=== PATIENT | male | born 1990 | race Caucasian/White ===

== ENCOUNTER 2020-02-06 12:51 | Emergency (ER) | payer OTHER ==
--- NOTE | 2020-02-06 13:51 | EDM.PDOC ---
ED HPI GENERAL MEDICAL PROBLEM - General Chief Complaint: Respiratory Problem Stated Complaint: CHEST PAIN,SOB,DIZZY Time Seen by Provider: 02/06/20 13:17 Source of Information: Reports: Patient History Limitations: Reports: No Limitations - History of Present Illness INITIAL COMMENTS - FREE TEXT/NARRATIVE: Patient is a 29-year-old male presenting to the emergency department with complaints of shortness of breath and chest pain with exertion, occasional numbness and tingling to his extremities well walking, lightheadedness upon standing, occasional cough, chills, and diarrhea. Patient states symptoms have been occurring for approximately 1 week. 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 He has had no known sick contacts. Patient is an everyday drinker. States he drinks a 6 to 12 pack each evening. Last drink was around 8 PM last evening. He denies any dark or bloody stools. He has had no vomiting, abdominal pain, or fever. He denies any chronic medical needed conditions and does not have a primary care provider. Chest Pain Score (Numeric/FACES): 4 - Related Data Allergies Allergy/AdvReac Type Severity Reaction Status Date / Time No Known Allergies Allergy Verified 02/06/20 13:02 Home Meds: Home Meds . [No Known Home Meds] 02/06/20 [History] Past Medical History - Past Health History Medical/Surgical History: Denies Medical/Surgical History Social & Family History - Tobacco Use Smoking Status *Q: Current Every Day Smoker Years of Tobacco use: 14 Packs/Tins Daily: 1 - Alcohol Use Date of Last Drink: 02/05/20 Time of Last Drink: 20:00 - Recreational Drug Use Recreational Drug Use: Yes Drug Use in Last 12 Months: Yes Recreational Drug Type: Reports: Marijuana/Hashish Recreational Drug Use Frequency: Socially ED ROS GENERAL - Review of Systems Review Of Systems: See Below Constitutional: Reports: Chills, Fatigue. Denies: Fever HEENT: Reports: No Symptoms Respiratory: Reports: Shortness of Breath, Cough. Denies: Wheezing Cardiovascular: Reports: Chest Pain (Intermittent, with exertion), Dyspnea on Exertion, Lightheadedness. Denies: Palpitations, Syncope Endocrine: Reports: No Symptoms GI/Abdominal: Reports: Diarrhea. Denies: Abdominal Pain, Nausea, Vomiting : Reports: No Symptoms Musculoskeletal: Reports: No Symptoms Skin: Reports: No Symptoms Neurological: Reports: Paresthesia (Intermittent to extremities with exertion) Psychiatric: Reports: No Symptoms Hematologic/Lymphatic: Reports: No Symptoms Immunologic: Reports: No Symptoms ED EXAM, GENERAL - Physical Exam Exam: See Below Exam Limited By: No Limitations General Appearance: Alert, WD/WN, No Apparent Distress Respiratory/Chest: No Respiratory Distress, Lungs Clear, Normal Breath Sounds, No Accessory Muscle Use, Chest Non-Tender Cardiovascular: Normal Peripheral Pulses, Regular Rate, Rhythm, No Edema, No Gallop, No JVD, No Murmur, No Rub GI/Abdominal: Normal Bowel Sounds, Soft, Non-Tender, No Organomegaly, No Distention, No Abnormal Bruit, No Mass Extremities: Normal Inspection, Normal Range of Motion, Non-Tender, Normal Capillary Refill, No Pedal Edema Neurological: Alert, Oriented, CN II-XII Intact, Normal Cognition, Normal Gait, Normal Reflexes, No Motor/Sensory Deficits Psychiatric: Normal Affect, Normal Mood Skin Exam: Warm, Dry, Intact, Normal Color, No Rash EKG INTERPRETATION EKG Date: 02/06/20 Time: 13:27 Rhythm: NSR Rate (Beats/Min): 96 [place]: Normal P-Wave: Present QRS: Normal ST-T: Normal QT: Normal Comparison: NA - No Prior EKG Course - Vital Signs Last Recorded V/S: Last Vital Signs Temp 97.2 F 02/06/20 19:23 Pulse 97 02/06/20 19:23 Resp 16 02/06/20 19:23 BP 125/73 02/06/20 19:23 Pulse Ox 100 02/06/20 13:00 Orthostatic Blood Pressure [ 119/28 Standing] Orthostatic Blood Pressure [ 129/70 Sitting] Orthostatic Blood Pressure [ 132/77 Supine] - Orders/Labs/Meds Labs: Laboratory Tests 02/06/20 02/06/20 02/06/20 Range/Units 13:26 13:26 13:26 WBC 6.87 (4.23-9.07) K/mm3 RBC 2.22 L (4.63-6.08) M/mm3 Hgb 4.5 L* (13.7-17.5) gm/dl Hct 16.4 L (40.1-51.0) % MCV 73.9 L (79.0-92.2) fl MCH 20.3 L (25.7-32.2) pg MCHC 27.4 L (32.2-35.5) g/dl RDW Std Deviation 48.8 H (35.1-43.9) fL Plt Count 398 H (163-337) K/mm3 MPV 8.0 L (9.4-12.3) fl Neut % (Auto) 69.6 H (34.0-67.9) % Lymph % (Auto) 14.0 L (21.8-53.1) % [place] % (Auto) 14.8 H (5.3-12.2) % Eos % (Auto) 0.6 L (0.8-7.0) Baso % (Auto) 0.9 (0.1-1.2) % Neut # (Auto) 4.78 (1.78-5.38) K/mm3 Lymph # (Auto) 0.96 L (1.32-3.57) K/mm3 [place] # (Auto) 1.02 H (0.30-0.82) K/mm3 Eos # (Auto) 0.04 (0.04-0.54) K/mm3 Baso # (Auto) 0.06 (0.01-0.08) K/mm3 Manual Slide Review Abnormal smear Percent Retic (0.51-1.81) % D-Dimer, Quantitative 1.07 H (0.19-0.50) mg/L Sodium 133 L (136-145) mEq/L Potassium 4.0 (3.5-5.1) mEq/L Chloride 96 L (98-107) mEq/L Carbon Dioxide 22 (21-32) mEq/L Anion Gap 19.0 H (5-15) BUN 5 L (7-18) mg/dL Creatinine 0.8 (0.7-1.3) mg/dL Est Cr Clr Drug Dosing 139.41 mL/min Estimated GFR (MDRD) > 60 (>60) mL/min BUN/Creatinine Ratio 6.3 L (14-18) Glucose 93 (74-106) mg/dL Calcium 8.2 L (8.5-10.1) mg/dL Magnesium (1.8-2.4) mg/dl Iron (65-175) ug/dL TIBC (100-400) ug/dL % Saturation (20-55) % Transferrin (202-364) mg/dL Ferritin (26-388) ng/ml Total Bilirubin 0.2 (0.2-1.0) mg/dL AST 27 (15-37) U/L ALT 21 (16-63) U/L Alkaline Phosphatase 44 L (46-116) U/L Lactate Dehydrogenase (85-227) U/L Troponin I < 0.017 (0.00-0.056) ng/mL C-Reactive Protein 0.3 (<1.0) mg/dL Total Protein 7.1 (6.4-8.2) g/dl Albumin 3.4 (3.4-5.0) g/dl Globulin 3.7 gm/dL Albumin/Globulin Ratio 0.9 L (1-2) Vitamin B12 (193-986) pg/ml Folate (8.6-58.9) ng/mL Blood Type Gel Antibody Screen Crossmatch 02/06/20 02/06/20 02/06/20 Range/Units 13:26 13:26 13:26 WBC (4.23-9.07) K/mm3 RBC (4.63-6.08) M/mm3 Hgb (13.7-17.5) gm/dl Hct (40.1-51.0) % MCV (79.0-92.2) fl MCH (25.7-32.2) pg MCHC (32.2-35.5) g/dl RDW Std Deviation (35.1-43.9) fL Plt Count (163-337) K/mm3 MPV (9.4-12.3) fl Neut % (Auto) (34.0-67.9) % Lymph % (Auto) (21.8-53.1) % [place] % (Auto) (5.3-12.2) % Eos % (Auto) (0.8-7.0) Baso % (Auto) (0.1-1.2) % Neut # (Auto) (1.78-5.38) K/mm3 Lymph # (Auto) (1.32-3.57) K/mm3 [place] # (Auto) (0.30-0.82) K/mm3 Eos # (Auto) (0.04-0.54) K/mm3 Baso # (Auto) (0.01-0.08) K/mm3 Manual Slide Review Percent Retic (0.51-1.81) % D-Dimer, Quantitative (0.19-0.50) mg/L Sodium (136-145) mEq/L Potassium (3.5-5.1) mEq/L Chloride (98-107) mEq/L Carbon Dioxide (21-32) mEq/L Anion Gap (5-15) BUN (7-18) mg/dL Creatinine (0.7-1.3) mg/dL Est Cr Clr Drug Dosing mL/min Estimated GFR (MDRD) (>60) mL/min BUN/Creatinine Ratio (14-18) Glucose (74-106) mg/dL Calcium (8.5-10.1) mg/dL Magnesium 1.8 (1.8-2.4) mg/dl Iron 5 L (65-175) ug/dL TIBC (100-400) ug/dL % Saturation (20-55) % Transferrin (202-364) mg/dL Ferritin 6 L (26-388) ng/ml Total Bilirubin (0.2-1.0) mg/dL AST (15-37) U/L ALT (16-63) U/L Alkaline Phosphatase (46-116) U/L Lactate Dehydrogenase (85-227) U/L Troponin I (0.00-0.056) ng/mL C-Reactive Protein (<1.0) mg/dL Total Protein (6.4-8.2) g/dl Albumin (3.4-5.0) g/dl Globulin gm/dL Albumin/Globulin Ratio (1-2) Vitamin B12 (193-986) pg/ml Folate (8.6-58.9) ng/mL Blood Type O NEGATIVE Gel Antibody Screen Negative Crossmatch See Detail 02/06/20 02/06/20 02/06/20 Range/Units 13:26 13:26 13:41 WBC (4.23-9.07) K/mm3 RBC (4.63-6.08) M/mm3 Hgb (13.7-17.5) gm/dl Hct (40.1-51.0) % MCV (79.0-92.2) fl MCH (25.7-32.2) pg MCHC (32.2-35.5) g/dl RDW Std Deviation (35.1-43.9) fL Plt Count (163-337) K/mm3 MPV (9.4-12.3) fl Neut % (Auto) (34.0-67.9) % Lymph % (Auto) (21.8-53.1) % [place] % (Auto) (5.3-12.2) % Eos % (Auto) (0.8-7.0) Baso % (Auto) (0.1-1.2) % Neut # (Auto) (1.78-5.38) K/mm3 Lymph # (Auto) (1.32-3.57) K/mm3 [place] # (Auto) (0.30-0.82) K/mm3 Eos # (Auto) (0.04-0.54) K/mm3 Baso # (Auto) (0.01-0.08) K/mm3 Manual Slide Review Percent Retic 3.05 H (0.51-1.81) % D-Dimer, Quantitative (0.19-0.50) mg/L Sodium (136-145) mEq/L Potassium (3.5-5.1) mEq/L Chloride (98-107) mEq/L Carbon Dioxide (21-32) mEq/L Anion Gap (5-15) BUN (7-18) mg/dL Creatinine (0.7-1.3) mg/dL Est Cr Clr Drug Dosing mL/min Estimated GFR (MDRD) (>60) mL/min BUN/Creatinine Ratio (14-18) Glucose (74-106) mg/dL Calcium (8.5-10.1) mg/dL Magnesium (1.8-2.4) mg/dl Iron 7 L (65-175) ug/dL TIBC 451 H (100-400) ug/dL % Saturation 2 L (20-55) % Transferrin 361 (202-364) mg/dL Ferritin (26-388) ng/ml Total Bilirubin (0.2-1.0) mg/dL AST (15-37) U/L ALT (16-63) U/L Alkaline Phosphatase (46-116) U/L Lactate Dehydrogenase 327 H (85-227) U/L Troponin I (0.00-0.056) ng/mL C-Reactive Protein (<1.0) mg/dL Total Protein (6.4-8.2) g/dl Albumin (3.4-5.0) g/dl Globulin gm/dL Albumin/Globulin Ratio (1-2) Vitamin B12 520 (193-986) pg/ml Folate 13.2 (8.6-58.9) ng/mL Blood Type Gel Antibody Screen Crossmatch Meds: Medications Discontinued Medications Generic Name Dose Route Start Last Admin Trade Name Estevan PRN Reason Stop Dose Admin Ferrous Sulfate 324 mg 02/06/20 17:16 Ferrous Sulfate PO 02/06/20 17:17 ONETIME ONE Sodium Chloride 1,000 mls @ 150 mls/hr 02/06/20 14:45 Normal Saline IV ASDIRECTED CHRISTINA Sodium Chloride 1,000 mls @ 150 mls/hr 02/06/20 14:43 02/06/20 15:04 Normal Saline IV 02/06/20 21:22 150 mls/hr NOW STA Administration Sodium Chloride 1,000 mls @ 150 mls/hr 02/06/20 15:45 Normal Saline IV ASDIRECTED CHRISTINA Sodium Chloride 250 mls @ 150 mls/hr 02/06/20 15:45 Normal Saline IV ASDIRECTED CHRISTINA Iopamidol 100 ml 02/06/20 14:28 02/06/20 14:53 Isovue-370 (76%) IVPUSH 02/06/20 14:29 100 ml ONETIME ONE Administration Iopamidol 50 ml 02/06/20 14:52 02/06/20 14:53 Isovue-370 (76%) IVPUSH 02/06/20 14:53 50 ml ONETIME ONE Administration Nicotine 21 mg 02/06/20 15:21 02/06/20 16:18 Habitrol TRDERM 02/06/20 15:22 21 mg ONETIME ONE Administration Sodium Chloride 20 ml 02/06/20 14:28 Normal Saline FLUSH 02/06/20 14:29 ONETIME ONE - Re-Assessments/Exams Free Text/Narrative Re-Assessment/Exam: 02/06/20 14:41 Hematology was significant for RBC low at 2.22, hemoglobin 4.5, hematocrit 16.4, MCV 73.9, d-dimer 1.07, sodium 133, chloride 96, anion gap 19.0. Troponin was negative. EKG showed no acute changes, chest x-ray was normal. Patient refused a rectal exam to be completed, however he did provide us with a stool sample. Stool was Hemoccult negative. I have added on an iron and a ferritin, as patient has a hypochromic, microcytic anemia likely due to iron deficiency. Patient did agree to have 2 units of red blood cells transfused today. Risks and benefits of blood transfusion discussed with him and he verbalized understanding. Proper written consent will be completed. I have also ordered a CT angiogram of his chest as his d-dimer is elevated. 02/06/20 15:24 CT angiogram was negative for PE or any other acute abnormalities. Patient's iron and ferritin were both quite low at 5 and 6 respectively. Discussed with patient that he has iron deficiency anemia and that his hemoglobin has likely been dropping slowly and his body is been compensating up to the point where could not anymore which is why he did not become symptomatic until 4.5. Plan will be to give him 2 units of packed red blood cells in the emergency department today as to not fluid overload him today. He will likely need additional units in the future. I will have him start an oral iron supplement at home. I will write for him to be off from work this week. He will need to follow-up in the clinic this week to have his blood work rechecked and begin an in depth anemia workup. He will likely require a hematology referral as at this time there is nothing to suggest that his anemia is due to blood loss. 02/06/20 19:38 Patient's 2 units of blood have finished. He was able to get up and walk around the unit. He states he "feels 100 times better "than he did when he came in here. I had a long discussion with him that it is essential that he follow-up in the clinic to recheck his labs and further investigate the cause of his anemia. I have added on a reticulocyte count, transferrin, TIBC, LDH, folic acid, and vitamin B12 to his original blood draw prior to transfusion being completed to help better diagnose the cause of his anemia. Advised the patient to begin taking ferrous sulfate 325 mg daily with orange juice. He should call tomorrow morning to set up an appointment in the clinic for follow-up. Recommend that he avoid alcohol intake. He verbalized understanding of these instructions. Discharge instructions as documented. Departure - Departure Time of Disposition: 19:41 Disposition: Home, Self-Care 01 Condition: Good Clinical Impression: Anemia Qualifiers: Anemia type: unspecified type Qualified Code(s): D64.9 - Anemia, unspecified - Discharge Information *PRESCRIPTION DRUG MONITORING PROGRAM REVIEWED*: No *COPY OF PRESCRIPTION DRUG MONITORING REPORT IN PATIENT TEODORO: No Instructions: Anemia, Blood Transfusion, Adult, Care After, [id number] Referrals: PCP,None [Primary Care Provider] - Forms: ED Department Discharge, ED Return to Work/School Form Additional Instructions: You were seen in the emergency department today for a one-week history of shortness of breath with exertion, chest pain with exertion, and dizziness upon standing. Your work-up included blood work, and a CT angiogram of your chest. The CT scan of your chest was normal. The results your blood work showed that your hemoglobin was very low at 4.5. Your iron and ferritin were also very low. While in the emergency department, you received 2 units of packed red blood cells as well as a first dose of iron supplementation. Your symptoms had improved greatly after this. Since you have been falling slowly over a long period of time, your body has adapted to functioning at these low levels; therefore, your hemoglobin must slowly be raised to normal. It is likely that you may require additional blood transfusions in the near future; therefore, it is imperative that you follow-up in the clinic tp establish care with a primary care provider for ongoing management of your anemia. You may also require a referral to hematology to determine the underlying cause of your iron deficiency anemia. In the meantime, I recommend that you start taking ferrous sulfate 325 mg daily with orange juice. This may be purchased over the counter at any pharmacy, grocery store, or [place]. Call first thing tomorrow morning to set up an appointment in the clinic with a provider to establish care, have your labs rechecked and for ongoing management. The number to call to set up an appointment is [phone]. It is also recommend that you abstain from alcohol use as this can only worsen your condition. If you need assistance stopping drinking, you may contact [facility] at [phone]. If you should experience any new or worsening symptoms of concern, please return to the emergency department. Sepsis Event Note (ED) - Evaluation Sepsis Screening Result: No Definite Risk
[2020-02-06] MEDS ORDERED: Sodium Chloride 0.9% 20 ML SDV FLUSH ONE (14:28)
[2020-02-06] MEDS ORDERED: Iopamidol 755 Mg/ML 100 ML Bottle IVPUSH ONE (14:28)
[2020-02-06] MEDS ORDERED: Sodium Chloride 0.9% 1,000 ML IV STA (14:43)
[2020-02-06] MEDS ORDERED: Sodium Chloride 0.9% 1,000 ML IV SCH ×2 (14:45→15:45)
--- NOTE | 2020-02-06 14:45 | CR ---
Chest: 2 views of the chest were obtained. Comparison: No prior chest imaging is available. Heart size and mediastinum are normal. Lungs are clear with no acute parenchymal change. Old fracture appears to be present within the left clavicle. Impression: 1. Nothing acute is appreciated on 2 view chest x-ray. Diagnostic code #1 This report was dictated in MDT
[2020-02-06] MEDS ORDERED: Iopamidol 755 MG/ML 50 ML Bottle IVPUSH ONE (14:52)
--- NOTE | 2020-02-06 15:13 | CT ---
CT chest Technique: Multiple axial sections through the chest were obtained. Intravenous contrast was utilized. Study has been performed as a pulmonary management protocol. Findings: Pulmonary arteries are well opacified. No filling defects are seen to indicate pulmonary embolism. Aorta shows no aneurysm or dissection. Mediastinum and hilar regions show no adenopathy. No pericardial fluid is seen. Visualized upper abdominal structures show nothing acute. Lungs are clear with no acute parenchymal change. No pleural effusions are seen. Bone window settings were reviewed. No acute osseous finding is appreciated. Partially visualized healed fracture deformity within the left clavicle is noted. Impression: 1. No findings of pulmonary embolism. 2. Other normal findings as noted above. Nothing acute is seen. Diagnostic code #1 This report was dictated in MDT
[2020-02-06] MEDS ORDERED: Nicotine 21 MG/24 Hr Patch TRDERM ONE (15:21)
[2020-02-06] MEDS ORDERED: Sodium Chloride 0.9% 250 ML IV SCH (15:45)
[2020-02-06] MEDS ORDERED: Ferrous Sulfate 324 MG Tab.EC PO ONE (17:16)
== END 2020-02-06 20:00 | disposition home or self-care (01) ==
LOC: JD.ED 12:51
DX: D50.9 Iron deficiency anemia, unspecified (principal); F17.210 Nicotine dependence, cigarettes, uncomplicated
CPT/HCPCS: 36415; 36430; 71046; 71275; 80053; 82607; 82728; 82746; 83540; 83615; 83735; 84466; 84484; 85025; 85045; 85379; 86140; 86850; 86900; 86901; 86922; 93005; 96360; 96361; 99285; A9270; J7030; P9016; Q9967

== ENCOUNTER 2021-11-21 11:20 | Day surgery (SDC) | payer SELFPAY ==
[2021-11-21] MEDS ORDERED: Metoclopramide 10 MG/2 ML SDV IVPUSH ONE (13:39)
[2021-11-21] MEDS ORDERED: Glucagon,Human Recombinant 1 MG Vial IVPUSH ONE (13:39)
[2021-11-21] MEDS ORDERED: Dextrose 5%-0.9% NaCl 1,000 ML IV SCH (13:45)
[2021-11-21] MEDS ORDERED: Diatrizoate Meglumine/Diatrizoate Sodium 37% 120 ML Bottle PO ONE (14:22)
[2021-11-21] MEDS ORDERED: Propofol 200 MG/20 ML SDV ONE ×3 (17:02→18:47)
[2021-11-21] MEDS ORDERED: Midazolam 1 MG/ML 2 ML SDV ONE (17:02)
[2021-11-21] MEDS ORDERED: fentaNYL 250 MCG/5 ML SDV ONE (17:02)
[2021-11-21] MEDS ORDERED: Dexamethasone 4 MG/ML SDV ONE (17:03)
[2021-11-21] MEDS ORDERED: Lidocaine 1% 4 ML ONE (17:03)
[2021-11-21] MEDS ORDERED: Ondansetron 4 MG/2 ML SDV ONE (17:03)
[2021-11-21] MEDS ORDERED: Succinylcholine 200 MG/10 ML MDV ONE (17:03)
[2021-11-21] MEDS ORDERED: Rocuronium 50 MG/5 ML Vial ONE (17:11)
[2021-11-21] MEDS ORDERED: Lactated Ringers 1,000 ML IV SCH (17:15)
[2021-11-21] MEDS ORDERED: Lactated Ringers 1,000 ML ONE (18:39)
[2021-11-21] MEDS ORDERED: fentaNYL 100 MCG/2 ML SDV IVPUSH PRN (19:14)
[2021-11-21] MEDS ORDERED: HYDROmorphone 0.5 MG/0.5 ML Syringe IVPUSH PRN (19:14)
[2021-11-21] MEDS ORDERED: Ondansetron 4 MG/2 ML SDV IVPUSH PRN (19:14)
== END 2021-11-21 19:45 | disposition home or self-care (01) ==
LOC: JD.ED 11:20 → JD.SDS 17:11
PROVIDERS: ATTEND Surgery
DX: K22.2 Esophageal obstruction (principal); K22.10 Ulcer of esophagus without bleeding; K20.80 Other esophagitis without bleeding; F17.210 Nicotine dependence, cigarettes, uncomplicated; Z98.890 Other specified postprocedural states
CPT/HCPCS: 36415; 43239; 43249; 71250; 80053; 83690; 85025; 86140; 93005; 96374; 99285; J0330; J1100; J1610; J2250; J2405; J2704; J2765; J3010; J7042; J7120; 00731; 93010; 99140; 99284

== ENCOUNTER 2023-03-24 08:39 | Inpatient (IN) | payer BC ==
[2023-03-24 09:20] LABS: BASOPHILS ABSOLUTE AUTO 0.1 K/mm3 (0.0-0.2); BASOPHILS PERCENT AUTO 2.6 % (0.0-1.0); EOSINOPHILS ABSOLUTE AUTO 0.2 K/mm3 (0.0-0.4); HEMATOCRIT 30.4 % (42.0-52.0); HEMOGLOBIN 9.3 gm/dl (14.0-18.0); IMMATURE GRAN ABSOLUTE AUTO 0.01 K/mm3 (0.00-0.05); IMMATURE GRAN PERCENT AUTO 0.2 % (0.0-0.4); LYMPHOCYTES ABSOLUTE AUTO 1.4 K/mm3 (1.0-4.8); LYMPHOCYTES PERCENT AUTO 26.2 % (24.0-44.0); MEAN CORPUSCULAR HEMOGLOBIN 26.9 pg (28.0-32.0); MEAN CORPUSCULAR HGB CONC 30.6 g/dl (32.0-36.0); MEAN CORPUSCULAR VOLUME 87.9 fl (83.0-99.0); MEAN PLATELET VOLUME 8.3 fl (9.4-12.4); MONOCYTES ABSOLUTE AUTO 1.1 K/mm3 (0.0-0.8); MONOCYTES PERCENT AUTO 20.2 % (0.0-8.0); NEUTROPHILS ABSOLUTE AUTO 2.5 K/mm3 (1.8-7.7); NEUTROPHILS PERCENT AUTO 46.8 % (41.0-71.0); PLATELET COUNT,PLT 420 K/mm3 (150-400); RED BLOOD CELL COUNT 3.46 M/mm3 (4.52-5.90)
[2023-03-24 09:26] LABS: INR 0.99; PROTHROMBIN TIME 10.6 SECONDS (9.7-12.0)
[2023-03-24 09:27] LABS: PTT,PARTIAL THROMBOPLSTIN TIME 23.6 SECONDS (21.7-31.4)
[2023-03-24 09:30] LABS: A/G RATIO 0.8 (1-2); ALBUMIN 3.5 g/dl (3.4-5.0); ANION GAP 13.4 (5-15); BILIRUBIN TOTAL 0.2 mg/dL (0.2-1.0); BUN/CREATININE RATIO 6.3 (14-18); CALCIUM 8.8 mg/dL (8.5-10.1); CREATININE 0.8 mg/dL (0.7-1.3); EST CRCL DRUG DOSING (CG) 135.61 mL/min; ETHANOL BLOOD MEDICAL 0.12 gm% (0.00); POTASSIUM,K 4.4 mEq/L (3.5-5.1); PROTEIN TOTAL,TP 7.8 g/dl (6.4-8.2)
[2023-03-24 09:54] LABS: APPEARANCE,URINE CLEAR (Clear); BILIRUBIN,URINE NEGATIVE (Negative); COLOR,URINE YELLOW (Yellow); GLUCOSE,URINE TRACE (Negative); KETONES,URINE NEGATIVE (Negative); LEUKOCYTE ESTERASE,URINE NEGATIVE (Negative); NITRITE,URINE NEGATIVE (Negative); OCCULT BLOOD,URINE NEGATIVE (Negative); PH,URINE 7.5 (5.0-8.0); PROTEIN,URINE 1+ (Negative); UROBILINOGEN,URINE 0.2 (0.2-1.0)
[2023-03-24 10:05] LABS: BARBITURATE SCREEN,URINE NEGATIVE (CUTOFF=200); BENZODIAZEPINES SCREEN,URINE NEGATIVE (CUTOFF=150); BUPRENORPHINE SCREEN,URINE NEGATIVE (CUTOFF=10); METHADONE SCREEN, URINE NEGATIVE (CUT0FF=200); METHAMPHETAMINES SCREEN, URINE NEGATIVE (CUTOFF=500); OXYCODONE SCREEN,URINE NEGATIVE (CUT0FF=100); PROPOXYPHENE SCREEN,URINE NEGATIVE (CUTOFF=300); THC SCREEN,URINE 20 NG/ML PRESUMPTIVE POSITIVE (CUTOFF=50)
[2023-03-24 10:07] LABS: AMPHETAMINES SCREEN, URINE NEGATIVE (CUTOFF=500)
[2023-03-24] MEDS ORDERED: Sodium Chloride 0.9% 1,000 ML IV ONE (10:15)
[2023-03-24 10:55] LABS: BACTERIA,URINE FEW /hpf (FEW); EPITHELIAL CELLS,URINE 0-5 /hpf (0-5); MUCUS,URINE NOT SEEN /hpf (FEW); RBC,URINE 0-5 /hpf (0-5); WBC,URINE 0-5 /hpf (0-5)
[2023-03-24] MEDS ORDERED: Sodium Chloride 0.9% 1,000 ML IV SCH (11:30)
[2023-03-24] MEDS ORDERED: Ondansetron 4 MG Tab.DIS PO PRN (11:50)
[2023-03-24] MEDS ORDERED: Ondansetron 4 MG/2 ML SDV IV PRN (11:50)
[2023-03-24] MEDS ORDERED: Docusate Sodium 100 MG Cap PO PRN (11:50)
[2023-03-24] MEDS ORDERED: Sodium Chloride 0.9% 10 ML Syringe FLUSH PRN (11:50)
[2023-03-24] MEDS ORDERED: cloNIDine 0.1 MG Tab PO PRN (11:53)
[2023-03-24] MEDS ORDERED: Multivitamin Tab PO ONE (11:53)
[2023-03-24] MEDS ORDERED: Thiamine 100 MG Tab PO SCH (12:00)
[2023-03-24] MEDS ORDERED: LORazepam 1 MG Tab PO SCH ×2 (12:00)
[2023-03-24] MEDS ORDERED: Sodium Ferric Gluconate Cmplex 125 MG in Sodium Chloride 0.9% 100 ML IV SCH (12:00)
[2023-03-24] MEDS ORDERED: LORazepam 2 MG/ML SDV IV SCH ×2 (12:00)
[2023-03-24] MEDS ORDERED: Lactated Ringers 1,000 ML IV SCH (12:00)
[2023-03-24] MEDS ORDERED: Nicotine 21 MG/24 Hr Patch TRDERM SCH (12:30)
[2023-03-24] MEDS ORDERED: Folic Acid 1 MG Tab PO SCH (13:15)
[2023-03-24] MEDS ORDERED: Sodium Ferric Gluconate Cmplex 125 MG in Sodium Chloride 0.9% 100 ML IV ONE (14:30)
[2023-03-24] MEDS ORDERED: Ferrous Sulfate 324 MG Tab.EC PO SCH (17:00)
[2023-03-25] MEDS ORDERED: Pantoprazole 40 MG Vial IV SCH (09:00)
== END 2023-03-24 18:15 | disposition home or self-care (01) | DRG 253 ==
LOC: JD.ED 08:39 → JD.MS 11:50
PROVIDERS: ADMIT Hospitalist; ATTEND Hospitalist
DX: K92.2 Gastrointestinal hemorrhage, unspecified (principal); D62 Acute posthemorrhagic anemia; F10.20 Alcohol dependence, uncomplicated; F17.210 Nicotine dependence, cigarettes, uncomplicated; F15.90 Other stimulant use, unspecified, uncomplicated
CPT/HCPCS: 36415; 80053; 80306; 80307; 81001; 83540; 85025; 85610; 85730; 86850; 86900; 86901; 96360; 99285-25; A9270-GY; J2916; J3490; J7030

== ENCOUNTER 2023-03-31 08:10 | Day surgery (SDC) | payer BC ==
[2023-03-31] MEDS ORDERED: Sodium Chloride 0.9% 10 ML Syringe FLUSH PRN (08:33)
[2023-03-31] MEDS ORDERED: Lactated Ringers 1,000 ML IV SCH (08:45)
[2023-03-31] MEDS ORDERED: Albuterol 0.083% 2.5 MG/3 ML Neb Soln NEB ONE (08:47)
[2023-03-31] MEDS ORDERED: Propofol 200 MG/20 ML SDV ONE ×2 (08:57→09:30)
[2023-03-31] MEDS ORDERED: Midazolam 1 MG/ML 2 ML SDV ONE (08:58)
[2023-03-31] MEDS ORDERED: fentaNYL 100 MCG/2 ML SDV ONE (08:58)
[2023-03-31] MEDS ORDERED: Sodium Chloride 0.9% 10 ML Syringe FLUSH SCH (09:00)
[2023-03-31] MEDS ORDERED: Lidocaine 1% 4 ML ONE (09:00)
== END 2023-03-31 10:08 | disposition home or self-care (01) ==
LOC: JD.SDS 08:10
PROVIDERS: ATTEND Surgery
DX: K29.71 Gastritis, unspecified, with bleeding (principal); K20.90 Esophagitis, unspecified without bleeding; K22.89 Other specified disease of esophagus; K64.8 Other hemorrhoids; F32.A Depression, unspecified; F41.0 Panic disorder [episodic paroxysmal anxiety]; F10.10 Alcohol abuse, uncomplicated; F17.210 Nicotine dependence, cigarettes, uncomplicated; Z79.899 Other long term (current) drug therapy
CPT/HCPCS: 43239; 45378; J2250; J2704; J3010; J7120; 00813; J3490; J7620-GY

== ENCOUNTER 2023-06-08 10:05 | Emergency (ER) | payer BC ==
[2023-06-08] MEDS ORDERED: Sucralfate Suspension 1 GM/10 ML Cup PO ONE (10:36)
[2023-06-08] MEDS ORDERED: Alum Hydrox/Mag Hydrox/Simeth 30 ML, Lidocaine 2% 15 ML PO ONE ×2 (10:36)
[2023-06-08 10:57] LABS: HEMATOCRIT 35.1 % (42.0-52.0); MEAN CORPUSCULAR HEMOGLOBIN 24.9 pg (28.0-32.0); MEAN CORPUSCULAR HGB CONC 31.9 g/dl (32.0-36.0); MEAN PLATELET VOLUME 8.5 fl (9.4-12.4); RED BLOOD CELL COUNT 4.49 M/mm3 (4.52-5.90); WHITE BLOOD CELL COUNT,WBC 10.11 K/mm3 (3.9-11.3)
[2023-06-08 10:58] LABS: HEMOGLOBIN 11.2 gm/dl (14.0-18.0); MEAN CORPUSCULAR VOLUME 78.2 fl (83.0-99.0); PLATELET COUNT,PLT 180 K/mm3 (150-400)
[2023-06-08 11:20] LABS: A/G RATIO 0.9 (1-2); ALBUMIN 3.7 g/dl (3.4-5.0); ANION GAP 16.6 (5-15); BILIRUBIN TOTAL 0.2 mg/dL (0.2-1.0); BUN/CREATININE RATIO 5.7 (14-18); CALCIUM 8.7 mg/dL (8.5-10.1); CREATININE 0.7 mg/dL (0.7-1.3); EST CRCL DRUG DOSING (CG) 154.98 mL/min; ETHANOL BLOOD MEDICAL 0.04 gm% (0.00); POTASSIUM,K 3.6 mEq/L (3.5-5.1); PROTEIN TOTAL,TP 7.8 g/dl (6.4-8.2)
[2023-06-08] MEDS ORDERED: Sodium Chloride 0.9% 1,000 ML IV ONE (11:38)
[2023-06-08] MEDS ORDERED: chlordiazePOXIDE 25 MG Cap PO ONE (12:03)
[2023-06-08] MEDS ORDERED: Pantoprazole 40 MG in Sodium Chloride 0.9% 100 ML IV ONE (12:03)
[2023-06-08] MEDS ORDERED: Pantoprazole 40 MG Vial IV ONE (12:15)
== END 2023-06-08 15:07 | disposition home or self-care (01) ==
LOC: JD.ED 10:05
DX: K85.20 Alcohol induced acute pancreatitis without necrosis or infection (principal); F10.239 Alcohol dependence with withdrawal, unspecified; Z79.899 Other long term (current) drug therapy
CPT/HCPCS: 36415; 80053; 80307; 83690; 85027; 96361; 96374; 99284; A9270; C9113; J7030; 99283

== ENCOUNTER 2023-12-15 09:59 | Inpatient (IN) | payer SELFPAY ==
[2023-12-15 10:34] LABS: BASOPHILS ABSOLUTE AUTO 0.2 K/mm3 (0.0-0.2); BASOPHILS PERCENT AUTO 1.6 % (0.0-1.0); EOSINOPHILS ABSOLUTE AUTO 0.1 K/mm3 (0.0-0.4); EOSINOPHILS PERCENT AUTO 0.7 % (0.0-6.0); IMMATURE GRAN ABSOLUTE AUTO 0.11 K/mm3 (0.00-0.05); LYMPHOCYTES PERCENT AUTO 18.4 % (24.0-44.0); MEAN CORPUSCULAR HEMOGLOBIN 31.5 pg (28.0-32.0); MEAN CORPUSCULAR HGB CONC 34.8 g/dl (32.0-36.0); MEAN PLATELET VOLUME 8.2 fl (9.4-12.4); MONOCYTES ABSOLUTE AUTO 1.2 K/mm3 (0.0-0.8); MONOCYTES PERCENT AUTO 10.5 % (0.0-8.0); NEUTROPHILS ABSOLUTE AUTO 7.5 K/mm3 (1.8-7.7); NEUTROPHILS PERCENT AUTO 67.8 % (41.0-71.0); RED BLOOD CELL COUNT 4.41 M/mm3 (4.52-5.90); WHITE BLOOD CELL COUNT,WBC 11.06 K/mm3 (3.9-11.3)
[2023-12-15] MEDS: LORazepam 2 MG/ML SDV IVPUSH ONE ×2 (10:35→12:50)
[2023-12-15] MEDS: Sodium Chloride 0.9% 10 ML Syringe FLUSH PRN (10:35)
[2023-12-15] MEDS: Sodium Chloride 0.9% 1,000 ML IV ONE ×2 (10:37→12:52)
[2023-12-15 10:40] LABS: HEMOGLOBIN 13.9 gm/dl (14.0-18.0); MEAN CORPUSCULAR VOLUME 90.7 fl (83.0-99.0); PLATELET COUNT,PLT 483 K/mm3 (150-400)
[2023-12-15 10:56] LABS: A/G RATIO 0.7 (1-2); ALBUMIN 3.3 g/dl (3.4-5.0); ANION GAP 21.7 (5-15); BILIRUBIN TOTAL 0.4 mg/dL (0.2-1.0); BUN/CREATININE RATIO 2.2 (14-18); CALCIUM 8.8 mg/dL (8.5-10.1); CREATININE 0.9 mg/dL (0.7-1.3); EST CRCL DRUG DOSING (CG) 119.41 mL/min; ETHANOL BLOOD MEDICAL 0.17 gm% (0.00); MAGNESIUM 1.5 mg/dL (1.8-2.4); POTASSIUM,K 3.7 mEq/L (3.5-5.1); PROTEIN TOTAL,TP 8.2 g/dl (6.4-8.2)
[2023-12-15 11:42] LABS: SLIDE REVIEW ABNORMAL SMEAR
[2023-12-15] MEDS: Magnesium Sulfate/Water 2 GM in Premix Bag 1 BAG IV ONE (12:53)
[2023-12-15] MEDS ORDERED: Acetaminophen 325 MG Tab PO PRN (13:23)
[2023-12-15] MEDS ORDERED: Ondansetron 4 MG/2 ML SDV IV PRN (13:23)
[2023-12-15] MEDS: Thiamine 200 MG/2 ML MDV IVPUSH SCH (14:08)
[2023-12-15] MEDS: chlordiazePOXIDE 25 MG Cap PO SCH (14:11)
[2023-12-15] MEDS: LORazepam 2 MG/ML SDV IV PRN (14:41)
[2023-12-15] MEDS: Sodium Chloride 0.9% 1,000 ML IV SCH (14:42)
[2023-12-15] MEDS: Pantoprazole 40 MG Tab.CR PO SCH (20:24)
[2023-12-15] MEDS: Thiamine 100 MG Tab PO SCH (20:24)
[2023-12-15] MEDS: Nicotine 21 MG/24 Hr Patch TRDERM SCH (21:24)
[2023-12-16 05:20] LABS: A/G RATIO 0.7 (1-2); ALBUMIN 2.5 g/dl (3.4-5.0); ANION GAP 15.9 (5-15); BILIRUBIN TOTAL 0.7 mg/dL (0.2-1.0); BUN/CREATININE RATIO 4.3 (14-18); CALCIUM 8.2 mg/dL (8.5-10.1); CREATININE 0.7 mg/dL (0.7-1.3); EST CRCL DRUG DOSING (CG) 153.53 mL/min; POTASSIUM,K 3.9 mEq/L (3.5-5.1); PROTEIN TOTAL,TP 6.2 g/dl (6.4-8.2)
[2023-12-16 05:29] LABS: HEMATOCRIT 33.5 % (42.0-52.0); MEAN CORPUSCULAR HEMOGLOBIN 31.9 pg (28.0-32.0); MEAN PLATELET VOLUME 8.5 fl (9.4-12.4); RED BLOOD CELL COUNT 3.57 M/mm3 (4.52-5.90); WHITE BLOOD CELL COUNT,WBC 6.93 K/mm3 (3.9-11.3)
[2023-12-16 05:40] LABS: HEMOGLOBIN 11.4 gm/dl (14.0-18.0); MEAN CORPUSCULAR VOLUME 93.8 fl (83.0-99.0); PLATELET COUNT,PLT 347 K/mm3 (150-400)
[2023-12-16] MEDS: Nicotine Polacrilex 2 MG Gum CHEW PRN (11:39)
[2023-12-16] MEDS: Nicotine 21 MG/24 Hr Patch TRDERM SCH (21:33)
== END 2023-12-17 06:00 | disposition left against medical advice (07) | DRG 894 ==
LOC: JD.ED 09:59 → JD.ICU 12:01
PROVIDERS: ADMIT Internal Medicine; ATTEND Internal Medicine
DX: F10.131 Alcohol abuse with withdrawal delirium (principal); F17.210 Nicotine dependence, cigarettes, uncomplicated; K21.9 Gastro-esophageal reflux disease without esophagitis; E83.42 Hypomagnesemia; F41.9 Anxiety disorder, unspecified; Z79.899 Other long term (current) drug therapy; Z87.81 Personal history of (healed) traumatic fracture; Z98.890 Other specified postprocedural states
CPT/HCPCS: 36415; 80053; 80307; 82550; 83690; 83735; 85025; 85027; 93010; 96361; 96374; 99284; 99285-25; A9270-GY; J2060; J3411; J3475; J3490; J7030

== ENCOUNTER 2023-12-18 09:37 | Emergency (ER) | payer SELFPAY ==
[2023-12-18] MEDS ORDERED: Dextrose 5%-Lactated Ringers 1,000 ML ONE ×2 (09:55→11:34)
[2023-12-18] MEDS: Dextrose 5%-Lactated Ringers 1,000 ML IV ONE ×2 (09:58→11:35)
[2023-12-18] MEDS ORDERED: Thiamine 200 MG/2 ML MDV ONE (10:58)
[2023-12-18] MEDS ORDERED: LORazepam 2 MG/ML SDV ONE ×3 (10:58→15:27)
[2023-12-18] MEDS ORDERED: Metoclopramide 10 MG/2 ML SDV ONE (10:58)
[2023-12-18] MEDS: Thiamine 200 MG/2 ML MDV IVPUSH ONE (11:04)
[2023-12-18] MEDS: Metoclopramide 10 MG/2 ML SDV IVPUSH ONE (11:08)
[2023-12-18] MEDS: LORazepam 2 MG/ML SDV IVPUSH ONE ×3 (11:13→15:28)
[2023-12-18 11:30] LABS: BASOPHILS ABSOLUTE AUTO 0.2 K/mm3 (0.0-0.2); BASOPHILS PERCENT AUTO 2.1 % (0.0-1.0); EOSINOPHILS ABSOLUTE AUTO 0.2 K/mm3 (0.0-0.4); EOSINOPHILS PERCENT AUTO 2.4 % (0.0-6.0); HEMATOCRIT 35.7 % (42.0-52.0); HEMOGLOBIN 11.9 gm/dl (14.0-18.0); IMMATURE GRAN ABSOLUTE AUTO 0.14 K/mm3 (0.00-0.05); IMMATURE GRAN PERCENT AUTO 1.6 % (0.0-0.4); LYMPHOCYTES ABSOLUTE AUTO 2.1 K/mm3 (1.0-4.8); LYMPHOCYTES PERCENT AUTO 23.1 % (24.0-44.0); MEAN CORPUSCULAR HEMOGLOBIN 32.2 pg (28.0-32.0); MEAN CORPUSCULAR HGB CONC 33.3 g/dl (32.0-36.0); MEAN CORPUSCULAR VOLUME 96.7 fl (83.0-99.0); MEAN PLATELET VOLUME 9.4 fl (9.4-12.4); MONOCYTES ABSOLUTE AUTO 1.2 K/mm3 (0.0-0.8); MONOCYTES PERCENT AUTO 13.3 % (0.0-8.0); NEUTROPHILS ABSOLUTE AUTO 5.1 K/mm3 (1.8-7.7); NEUTROPHILS PERCENT AUTO 57.5 % (41.0-71.0); PLATELET COUNT,PLT 319 K/mm3 (150-400); RED BLOOD CELL COUNT 3.69 M/mm3 (4.52-5.90); WHITE BLOOD CELL COUNT,WBC 8.89 K/mm3 (3.9-11.3)
[2023-12-18 11:37] LABS: INR 1.03; PROTHROMBIN TIME 10.9 SECONDS (9.7-12.0)
[2023-12-18 11:38] LABS: PTT,PARTIAL THROMBOPLSTIN TIME 24.5 SECONDS (21.7-31.4)
[2023-12-18 11:50] LABS: A/G RATIO 0.8 (1-2); ALANINE AMINOTRANSFERASE,ALT 42 U/L (16-63); ALBUMIN 3.2 g/dl (3.4-5.0); ALKALINE PHOSPHATASE 89 U/L (46-116); ANION GAP 19.5 (5-15); ASPARTATE AMNIOTRANSFERASE,AST 70 U/L (15-37); BILIRUBIN TOTAL 0.9 mg/dL (0.2-1.0); BLOOD UREA NITROGEN,BUN 1 mg/dL (7-18); BUN/CREATININE RATIO 1.3 (14-18); C-REACTIVE PROTEIN 1.05 mg/dL (<0.30); CARBON DIOXIDE,CO2 18 mEq/L (21-32); CHLORIDE,CL 102 mEq/L (98-107); CREATININE 0.8 mg/dL (0.7-1.3); ESTIMATED GFR 119 mL/min (>60); GLUCOSE RANDOM 81 mg/dL (70-99); LIPASE 145 U/L (16-77); POTASSIUM,K 3.5 mEq/L (3.5-5.1); PROTEIN TOTAL,TP 7.3 g/dl (6.4-8.2); SODIUM,NA 136 mEq/L (136-145); TSH 1.724 uIU/mL (0.358-3.74)
[2023-12-18 12:39] LABS: APPEARANCE,URINE CLEAR (Clear); BILIRUBIN,URINE NEGATIVE (Negative); COLOR,URINE YELLOW (Yellow); GLUCOSE,URINE NEGATIVE (Negative); KETONES,URINE NEGATIVE (Negative); LEUKOCYTE ESTERASE,URINE NEGATIVE (Negative); NITRITE,URINE NEGATIVE (Negative); OCCULT BLOOD,URINE NEGATIVE (Negative); PROTEIN,URINE NEGATIVE (Negative); UROBILINOGEN,URINE 0.2 (0.2-1.0)
[2023-12-18 12:55] LABS: BARBITURATE SCREEN,URINE NEGATIVE (CUTOFF=200); BENZODIAZEPINES SCREEN,URINE PRESUMPTIVE POSITIVE (CUTOFF=150); BUPRENORPHINE SCREEN,URINE NEGATIVE (CUTOFF=10); METHADONE SCREEN, URINE NEGATIVE (CUT0FF=200); METHAMPHETAMINES SCREEN, URINE NEGATIVE (CUTOFF=500); OXYCODONE SCREEN,URINE NEGATIVE (CUT0FF=100); THC SCREEN,URINE 20 NG/ML NEGATIVE (CUTOFF=50)
[2023-12-18 12:58] LABS: BACTERIA,URINE FEW /hpf (FEW); MUCUS,URINE FEW /hpf (FEW); RBC,URINE 0-5 /hpf (0-5); SQUAMOUS EPITHELIAL CELLS,UR 0-5 /hpf (0-5); WBC,URINE 0-5 /hpf (0-5)
[2023-12-18 13:13] LABS: AMPHETAMINES SCREEN, URINE NEGATIVE (CUTOFF=500)
[2023-12-18] MEDS: Iopamidol 612 MG/ML 100 ML Bottle IVPUSH ONE (15:33)
[2023-12-18] MEDS: Dextrose 5%-Lact Ringers w/KCl 1,000 ML IV SCH (19:23)
[2023-12-19] MEDS: LORazepam 2 MG/ML SDV IVPUSH ONE (06:00)
[2023-12-19] MEDS: Ibuprofen 600 MG Tab PO ONE (07:36)
[2023-12-19] MEDS: LORazepam 2 MG/ML SDV IVPUSH PRN (07:37)
== END 2023-12-19 08:20 | disposition home or self-care (01) ==
LOC: JD.ED 09:37
DX: S20.211A Contusion of right front wall of thorax, initial encounter (principal); F10.930 Alcohol use, unspecified with withdrawal, uncomplicated; K21.9 Gastro-esophageal reflux disease without esophagitis; Z79.899 Other long term (current) drug therapy; W19.XXXA Unspecified fall, initial encounter
CPT/HCPCS: 36415; 71260; 74177; 80053; 80306; 80307; 81001; 83605; 83690; 83735; 84443; 85025; 85610; 85730; 86140; 86850; 86900; 86901; 96361; 96365; 96366; 96375; 96376; 99285; A9270; J2060; J2765; J3411; J3480; J7121; Q9967

== ENCOUNTER 2024-01-03 10:11 | Emergency (ER) | payer MEDICAID ==
[2024-01-03] MEDS: Lactated Ringers 1,000 ML IV ONE (11:19)
[2024-01-03] MEDS: Sodium Chloride 0.9% 10 ML Syringe FLUSH PRN (11:19)
[2024-01-03 11:23] LABS: BASOPHILS ABSOLUTE AUTO 0.1 K/mm3 (0.0-0.2); BASOPHILS PERCENT AUTO 0.8 % (0.0-1.0); EOSINOPHILS ABSOLUTE AUTO 0.1 K/mm3 (0.0-0.4); EOSINOPHILS PERCENT AUTO 0.9 % (0.0-6.0); HEMATOCRIT 36.1 % (42.0-52.0); HEMOGLOBIN 12.7 gm/dl (14.0-18.0); IMMATURE GRAN ABSOLUTE AUTO 0.02 K/mm3 (0.00-0.05); IMMATURE GRAN PERCENT AUTO 0.3 % (0.0-0.4); LYMPHOCYTES ABSOLUTE AUTO 1.5 K/mm3 (1.0-4.8); LYMPHOCYTES PERCENT AUTO 19.1 % (24.0-44.0); MEAN CORPUSCULAR HEMOGLOBIN 32.4 pg (28.0-32.0); MEAN CORPUSCULAR HGB CONC 35.2 g/dl (32.0-36.0); MEAN PLATELET VOLUME 8.9 fl (9.4-12.4); MONOCYTES ABSOLUTE AUTO 0.8 K/mm3 (0.0-0.8); MONOCYTES PERCENT AUTO 10.1 % (0.0-8.0); NEUTROPHILS ABSOLUTE AUTO 5.4 K/mm3 (1.8-7.7); NEUTROPHILS PERCENT AUTO 68.8 % (41.0-71.0); RED BLOOD CELL COUNT 3.92 M/mm3 (4.52-5.90)
[2024-01-03 11:35] LABS: MEAN CORPUSCULAR VOLUME 92.1 fl (83.0-99.0); PLATELET COUNT,PLT 242 K/mm3 (150-400)
[2024-01-03 11:35] LABS: APPEARANCE,URINE CLEAR (Clear); BILIRUBIN,URINE NEGATIVE (Negative); COLOR,URINE YELLOW (Yellow); GLUCOSE,URINE NEGATIVE (Negative); KETONES,URINE NEGATIVE (Negative); LEUKOCYTE ESTERASE,URINE NEGATIVE (Negative); NITRITE,URINE NEGATIVE (Negative); OCCULT BLOOD,URINE NEGATIVE (Negative); PROTEIN,URINE NEGATIVE (Negative); UROBILINOGEN,URINE 0.2 (0.2-1.0)
[2024-01-03] MEDS: Nicotine 14 MG/24 Hr Patch TRDERM ONE (11:36)
[2024-01-03 11:39] LABS: BARBITURATE SCREEN,URINE NEGATIVE (CUTOFF=200); BENZODIAZEPINES SCREEN,URINE PRESUMPTIVE POSITIVE (CUTOFF=150); BUPRENORPHINE SCREEN,URINE NEGATIVE (CUTOFF=10); METHADONE SCREEN, URINE NEGATIVE (CUT0FF=200); METHAMPHETAMINES SCREEN, URINE NEGATIVE (CUTOFF=500); OXYCODONE SCREEN,URINE NEGATIVE (CUT0FF=100); THC SCREEN,URINE 20 NG/ML NEGATIVE (CUTOFF=50)
[2024-01-03 11:47] LABS: A/G RATIO 0.8 (1-2); ALBUMIN 3.1 g/dl (3.4-5.0); ANION GAP 12.4 (5-15); BILIRUBIN TOTAL 0.4 mg/dL (0.2-1.0); BUN/CREATININE RATIO 3.8 (14-18); CALCIUM 8.1 mg/dL (8.5-10.1); CREATININE 0.8 mg/dL (0.7-1.3); EST CRCL DRUG DOSING (CG) 134.34 mL/min; ETHANOL BLOOD MEDICAL 0.2 gm% (0.00); MAGNESIUM 1.4 mg/dL (1.8-2.4); POTASSIUM,K 3.4 mEq/L (3.5-5.1); PROTEIN TOTAL,TP 6.9 g/dl (6.4-8.2)
[2024-01-03 11:47] LABS: AMPHETAMINES SCREEN, URINE NEGATIVE (CUTOFF=500)
[2024-01-03] MEDS: Folic Acid 1 MG Tab PO ONE (12:21)
[2024-01-03] MEDS: Thiamine 200 MG/2 ML MDV IVPUSH ONE (12:21)
[2024-01-03] MEDS: Folic Acid 50 MG/10 ML MDV IV STA (12:22)
[2024-01-03] MEDS ORDERED: Magnesium Sulfate/Water 2 GM in Premix Bag 1 BAG IV SCH (13:00)
[2024-01-03] MEDS: Magnesium Oxide 400 MG Tab PO ONE (13:22)
== END 2024-01-03 14:00 | disposition other institution (70) ==
LOC: JD.ED 10:11
DX: K86.0 Alcohol-induced chronic pancreatitis (principal); F10.230 Alcohol dependence with withdrawal, uncomplicated; E83.42 Hypomagnesemia; K21.9 Gastro-esophageal reflux disease without esophagitis; F17.210 Nicotine dependence, cigarettes, uncomplicated; Z79.899 Other long term (current) drug therapy; Y90.9 Presence of alcohol in blood, level not specified
CPT/HCPCS: 36415; 80053; 80306; 80307; 81003; 83690; 83735; 85025; 93005; 96361; 96374; 99285; A9270; J3411; J3490; J7120

== ENCOUNTER 2024-01-11 21:49 | Emergency (ER) | payer MEDICAID ==
[2024-01-11] MEDS: LORazepam 2 MG/ML SDV IV ONE (22:08)
[2024-01-11] MEDS: Sodium Chloride 0.9% 1,000 ML IV ONE (22:12)
[2024-01-11] MEDS: Sodium Chloride 0.9% 10 ML Syringe FLUSH PRN (22:12)
[2024-01-11 22:28] LABS: APPEARANCE,URINE CLEAR (Clear); BILIRUBIN,URINE NEGATIVE (Negative); COLOR,URINE YELLOW (Yellow); GLUCOSE,URINE NEGATIVE (Negative); KETONES,URINE NEGATIVE (Negative); LEUKOCYTE ESTERASE,URINE NEGATIVE (Negative); NITRITE,URINE NEGATIVE (Negative); OCCULT BLOOD,URINE NEGATIVE (Negative); PROTEIN,URINE 1+ (Negative); UROBILINOGEN,URINE 0.2 (0.2-1.0)
[2024-01-11 22:34] LABS: BARBITURATE SCREEN,URINE NEGATIVE (CUTOFF=200); BENZODIAZEPINES SCREEN,URINE PRESUMPTIVE POSITIVE (CUTOFF=150); BUPRENORPHINE SCREEN,URINE NEGATIVE (CUTOFF=10); METHADONE SCREEN, URINE NEGATIVE (CUT0FF=200); METHAMPHETAMINES SCREEN, URINE NEGATIVE (CUTOFF=500); OXYCODONE SCREEN,URINE NEGATIVE (CUT0FF=100); THC SCREEN,URINE 20 NG/ML NEGATIVE (CUTOFF=50)
[2024-01-11 22:36] LABS: BASOPHILS ABSOLUTE AUTO 0.1 K/mm3 (0.0-0.2); EOSINOPHILS ABSOLUTE AUTO 0.1 K/mm3 (0.0-0.4); EOSINOPHILS PERCENT AUTO 1.3 % (0.0-6.0); HEMATOCRIT 39.8 % (42.0-52.0); HEMOGLOBIN 12.9 gm/dl (14.0-18.0); IMMATURE GRAN ABSOLUTE AUTO 0.11 K/mm3 (0.00-0.05); IMMATURE GRAN PERCENT AUTO 1.1 % (0.0-0.4); LYMPHOCYTES ABSOLUTE AUTO 1.8 K/mm3 (1.0-4.8); LYMPHOCYTES PERCENT AUTO 19.1 % (24.0-44.0); MEAN CORPUSCULAR HEMOGLOBIN 32.9 pg (28.0-32.0); MEAN CORPUSCULAR HGB CONC 32.4 g/dl (32.0-36.0); MEAN CORPUSCULAR VOLUME 101.5 fl (83.0-99.0); MEAN PLATELET VOLUME 8.9 fl (9.4-12.4); MONOCYTES ABSOLUTE AUTO 1.9 K/mm3 (0.0-0.8); MONOCYTES PERCENT AUTO 19.3 % (0.0-8.0); NEUTROPHILS ABSOLUTE AUTO 5.6 K/mm3 (1.8-7.7); NEUTROPHILS PERCENT AUTO 58.2 % (41.0-71.0); PLATELET COUNT,PLT 328 K/mm3 (150-400); RED BLOOD CELL COUNT 3.92 M/mm3 (4.52-5.90); WHITE BLOOD CELL COUNT,WBC 9.57 K/mm3 (3.9-11.3)
[2024-01-11 22:36] LABS: AMPHETAMINES SCREEN, URINE NEGATIVE (CUTOFF=500)
[2024-01-11 22:42] LABS: BACTERIA,URINE MODERATE /hpf (FEW); MUCUS,URINE FEW /hpf (FEW); RBC,URINE 0-5 /hpf (0-5); SQUAMOUS EPITHELIAL CELLS,UR 0-5 /hpf (0-5); WBC,URINE 0-5 /hpf (0-5)
[2024-01-11 23:08] LABS: ALBUMIN 3.9 g/dl (3.4-5.0); ANION GAP 16.4 (5-15); BILIRUBIN TOTAL 0.4 mg/dL (0.2-1.0); CALCIUM 9.6 mg/dL (8.5-10.1); EST CRCL DRUG DOSING (CG) 107.47 mL/min; MAGNESIUM 1.6 mg/dL (1.8-2.4); POTASSIUM,K 4.4 mEq/L (3.5-5.1); PROTEIN TOTAL,TP 7.9 g/dl (6.4-8.2)
[2024-01-12] MEDS ORDERED: Magnesium Sulfate (4 meq/ML) 10 GM/20 ML SDV IV ONE (01:05)
[2024-01-12] MEDS ORDERED: Magnesium Sulfate (4.06 MEQ/ML) 5 GM/10 ML SDV IV ONE (01:27)
[2024-01-12] MEDS: Magnesium Sulfate/Water 50 ML IV ONE (01:38)
[2024-01-12] MEDS: LORazepam 0.5 MG Tab PO ONE (05:43)
== END 2024-01-12 09:05 | disposition home or self-care (01) ==
LOC: JD.ED 21:49
DX: G40.909 Epilepsy, unspecified, not intractable, without status epilepticus (principal); F13.139 Sedative, hypnotic or anxiolytic abuse with withdrawal, unspecified; F17.210 Nicotine dependence, cigarettes, uncomplicated; K21.9 Gastro-esophageal reflux disease without esophagitis; Z79.899 Other long term (current) drug therapy
CPT/HCPCS: 36415; 70450; 80053; 80306; 80307; 81001; 83735; 85025; 93005; 96365; 96375; 99284; A9270; J2060; J3475; J3490; J7030